=== PATIENT | male | born 1980 | race Two or more races ===

== ENCOUNTER 2020-09-19 10:13 | Emergency (ER) | payer SELFPAY ==
[2020-09-19 10:13] VITALS: BP 140/87
[2020-09-19] MEDS ORDERED: TETANUS-DIPTH-ACEL PERTUSSIS 0.5ML SYR Tdap IM ONE (10:45)
[2020-09-19] MEDS ORDERED: LIDOCAINE 1% HCL (LOCAL ANESTH.) INJ 20ML MDV IJ ONE (10:45)
== END 2020-09-19 11:49 | disposition home or self-care (01) ==
LOC: ER 10:13
DX: S91.311A Laceration without foreign body, right foot, initial encounter (principal); W26.9XXA Contact with unspecified sharp object(s), initial encounter; Y93.89 Activity, other specified; Y92.89 Other specified places as the place of occurrence of the external cause; Y99.8 Other external cause status
CPT/HCPCS: 12001; 90471; 90715; 99283; J2001